=== PATIENT | male | born 1940 | race Caucasian/White ===

== ENCOUNTER 2019-03-24 18:44 | Emergency (ER) | payer MEDICARE, BC ==
[~2019-03-24] VITALS: Ht 177.8 cm; Wt 81.5 kg
[2019-03-24 19:47] VITALS: BP 160/88
--- NOTE | 2019-03-25 02:57 | HPE ---
DATE OF SERVICE: 03/24/2019 CHIEF COMPLAINT: Left hand swelling. HISTORY OF PRESENT ILLNESS: The patient injured his left wrist on Monday. He was seen at the [facility] and placed in a cast roughly on the day of the injury. Earlier today he noticed swelling of his fingers and felt that the cast was excessively tight. He did not notice any circulation deficit in his fingers. He did not notice any numbness or tingling in his fingers and he did present to the [facility] emergency room. They did not have a cast saw so they referred him to [facility]. I was consulted then by the emergency room staff. PHYSICAL EXAMINATION: He is awake, alert and oriented x3, well-appearing in no acute distress. He is in a long-arm thumb spica cast on the left side which is clean, dry and intact. Distally he has less than 2 seconds capillary refill with sensation intact to light touch on all of his fingers. His thumb is in the spica portion of the cast but it is also sensate and perfused on the tip. He is moving his fingers freely. There is no pain with passive stretch and he is fully neurovascularly intact into his left hand. There is a typical amount of a boggy swelling around the hand out of the cast but not drastically and is consistent with what one would expect for this injury. X-rays of the left wrist that the patient provided on the disc his injury films show what appears to be a minimally displaced distal radius fracture. I did not have a radiologist read for that. ASSESSMENT: Swelling of the left hand, discomfort and tightness of the cast. After obtaining the patient's verbal consent I did bivalve the cast and this immediately provided complete relief of the subjective tightness. He was much more comfortable now after by the cast was bivalved and moving the fingers again freely and fully neurovascularly intact with oxygen saturation 97% on room air with good waveform on the middle finger symmetric bilaterally, less than 2 seconds capillary refill with sensation intact to light touch in all of his fingertips. No pain with passive stretch. I did obtain x-rays of the left wrist which showed no significant changes on my view. He will follow up tomorrow with the orthopedic group for recheck and possibly cast overwrap in the next couple of days. He was given thorough instructions on how to monitor the neurovascular status of the fingers and he will return promptly for worsening or for any changes. I did give the option of completely removing the cast at this time to allow more comfort with swelling but he is going to continue with the bivalve cast as he feels much more comfortable. He is going to elevate as well to control swelling. All of his questions were answered and he is satisfied with the treatment at this time. SATNAM
--- NOTE | 2019-03-25 07:17 | REP ---
Clinical: Status post reduction. Technique: AP and lateral views of the left wrist. Findings: Fractures involving the distal radial metaphysis and ulnar styloid process are identified and satisfactory reduction is suggested. Underlying degenerative changes at the wrist and primarily the first and second carpometacarpal joints noted. Further evaluation is limited by overlying cast material. Impression: Nondisplaced fractures of the distal radius and ulnar styloid. Electronically Signed by Glenn Peace MD 03/25/2019 07:08 A
== END 2019-03-24 20:16 | disposition home or self-care (01) ==
LOC: M ED 18:44
DX: Z46.89 Encounter for fitting and adjustment of other specified devices (principal)

== ENCOUNTER 2019-04-20 12:25 | Emergency (ER) | payer MEDICARE, BC ==
[~2019-04-20] VITALS: Ht 177.8 cm; Wt 76.8 kg
[2019-04-20 14:06] VITALS: BP 139/65
--- NOTE | 2019-04-20 14:15 | REP ---
LEFT WRIST, FOUR VIEWS: Four views of the left wrist performed. There is a fracture of the distal radius. Overlying cast obscures underlying osseous detail. I do not see significant displacement of the fracture. Arthritic changes are seen at the base of the thumb. Electronically Signed by Olivier Johns MD 04/21/2019 10:02 P
--- NOTE | 2019-04-22 17:11 | IPN ---
DATE: 04/20/2019 SUBJECTIVE: The patient is in approximately his fifth week of treatment for a closed distal radius fracture, nonoperative management with a cast. He has had persistent discomfort with a sensation of tightness of the cast, previously seen in the emergency department and the cast was then split, ultimately shortened to a short-arm cast and he has been doing well. However, he states that this morning he felt some tightness in the cast and a very brief period of decreased sensation in his fingertips which resolved after a minute or two at most. He presented requesting loosening of the cast and also shortening of it because he has significant discomfort when flexing the elbow as the cast digs into his volar forearm. He has no other new complaints at this moment. He has no neurovascular symptoms of any kind in his left hand. OBJECTIVE: Awake, alert and oriented times, well-appearing male in no acute distress. On examination of the left wrist, there is a short-arm cast which is clean, dry and intact. The cast does not appear to be excessively tight and he is fully neurovascular intact distally. He is moving his fingers freely. Fingertips are pink, warm, well-perfused with less than two seconds capillary refill and sensation intact to light touch throughout the radial, median, ulnar nerve distribution. Motor function is intact and normal in the left hand. With elbow flexion, the more proximal edge of the cast does dig in to the soft tissue of the forearm slightly. ASSESSMENT: Discomfort with the cast as above. PLAN: I do not believe the cast definitely needs to be split and I did discuss that with him. Certainly there is a risk of splitting the cast that he could lose some reduction and he does understand that and he is adamant that he would like the cast univalved and shortened by about an inch or so proximally and so I did go ahead and perform that for him. He expressed some relief and increased comfort after univalving and shortening the proximal edge of the cast. I did obtain x-rays in the plaster which did not show any significant changes from the previous x-rays available in the system here. The plan at this time is he will be discharged to home. He will contact orthopedic practice on Monday morning for cast over-wrap or reevaluation and continue to monitor the neurovascular status of his hand. I did discuss with him I think there is a component of anxiety and he says that he has a history of being uncomfortable with tight things on his skin and that is understandable, but again the cast did not appear to be really excessively tight and so he is satisfied with the treatment at this time. SATNAM
== END 2019-04-20 14:08 | disposition home or self-care (01) ==
LOC: M ED 12:25
DX: Z46.89 Encounter for fitting and adjustment of other specified devices (principal); Z87.891 Personal history of nicotine dependence